=== PATIENT | female | born 1950 | race African-American/Black ===

== ENCOUNTER 2019-11-05 11:37 | Inpatient (IN) | payer OTHER, MEDICAID ==
[~2019-11-05] VITALS: Ht 160 cm; Wt 102.9 kg
[2019-11-05] MEDS ORDERED: ASPirin 81 mg TAB PO ONE (12:30)
[2019-11-05] MEDS ORDERED: cloNIDine HCL 0.1 MG TAB PO ONE (13:30)
[2019-11-05 13:43] LABS: Basophils # (auto) 0.1 10 ^3/uL (0-0.2); Eosinophils # (auto) 0.1 10 ^3/uL (0-0.8); Hematocrit 45.1 % (36.0-46.0); Hemoglobin 14.3 g/dL (12.2-16.2); Mean Corpuscular Hemoglobin 26.1 pg (28.0-32.0)
[2019-11-05 13:45] LABS: Basophils % (auto) 0.9 % (0.0-2.0); Eosinophils % (auto) 1.1 % (0.0-7.0); Lymphocytes # (auto) 2.6 10 ^3/uL (0.4-5.4); Lymphocytes % (auto) 26.8 % (10.0-50.0); Mean Corpuscular Hgb Conc. 31.8 g/dL (32.0-36.0); Mean Corpuscular Volume 82.2 fL (80.0-100.0); Neutrophils # (auto) 5.9 10 ^3/uL (1.6-8.6); Neutrophils % (auto) 61.2 % (37.0-80.0); Platelet Count (auto) 246 10^3/uL (140-450); Red Blood Cells 5.49 10^6/uL (4.0-5.20); Red Cell Distribution Width 14.6 % (11.8-14.3); White Blood Cell 9.7 10^3/uL (4.4-10.8)
[2019-11-05 13:56] LABS: INR 1.02 (0.9-1.15); Partial Thromboplastin Time 24.4 sec (23.64-32.05)
[2019-11-05 13:58] LABS: Albumin 3.6 g/dL (3.4-5.0); Anion Gap 7 (5-15); Blood Urea Nitrogen 10 mg/dL (7-18); Calcium 8.9 mg/dL (8.5-10.1); Carbon Dioxide 25 mmol/L (21-32); Chloride 109 mmol/L (98-107); Glucose 229 mg/dL (74-106); Potassium 3.7 mmol/L (3.5-5.1); Sodium 141 mmol/L (136-145)
[2019-11-05 14:04] LABS: Alanine Aminotransferase 29 U/L (13-56); Alkaline Phosphatase 106 U/L (45-117); Aspartate Aminotransferase 21 U/L (15-37); BUN/Creatinine Ratio 9.8; Bilirubin, Total 0.6 mg/dL (0.2-1.0); GFR African American 69 mL/min; GFR Non-African American 57 mL/min; Total Protein 7.8 g/dL (6.4-8.2)
[2019-11-05] MEDS ORDERED: DEXTROSE (50%) 50ML SYRG IV PRN (15:15)
[2019-11-05] MEDS ORDERED: NITROGLYCERIN 0.4 MG SL TAB SL PRN (15:15)
[2019-11-05] MEDS ORDERED: ONDANSETRON HCL 4 MG/2 ML VIAL IV PRN (15:15)
[2019-11-05] MEDS ORDERED: traMADol HCL 50 MG TAB PO PRN (15:15)
[2019-11-05] MEDS ORDERED: ACETAMINOPHEN 500 MG TAB PO PRN (15:15)
[2019-11-05] MEDS ORDERED: LORazepam 0.5 MG TAB PO PRN (15:15)
[2019-11-05] MEDS ORDERED: LACTULOSE 20Gm/30ML SOLN PO PRN (15:15)
[2019-11-05] MEDS ORDERED: TEMAZEPAM 15 MG CAP PO PRN (15:15)
[2019-11-05] MEDS ORDERED: MORPHINE SULF INJ 2 MG/ML SYRINGE 1ML IV PRN ×2 (15:15)
--- NOTE | 2019-11-05 16:13 | NUR ---
Telemetry admit from ER T[facility] admitted to Telemetry unit after SBAR received from ESTHETICIANTERRANCE Chao. Patient oriented to Lupe Jennings RN primary RN, unit, room, bed, and unit policies regarding patient care and visiting hours. Patient now on continuous telemetry monitoring, tele box # [id number] and telemetry reading on arrival to unit is Sinus Rhythm 94 bpm. Patient weighed by bedscale and encouraged to call if they need something. All questions and concerns addressed, patient verbalized understanding.
[2019-11-05] MEDS: SODIUM CHLORIDE 0.9% 1,000 ML IV SCH (16:46)
[2019-11-05] MEDS: ACCU-CHEK COMFORT CURVE STRIP VI SCH ×2 (16:48→21:33)
[2019-11-05] MEDS: InsuLIN REG 1unit/0.01ml Soln (100units/ml) SC SCH ×2 (17:26→21:36)
[2019-11-05 18:05] VITALS: BP 107/52
[2019-11-05] MEDS ORDERED: PNEUMOCOCCAL VACC POLYS 25 MCG/0.5 ML VIAL IM ONE (19:00)
--- NOTE | 2019-11-05 19:20 | NUR ---
CLOSING SHIFT NOTE ENDORSED CARE TO FORM SETTER/DRIVER TERRANCE MARTINEZ. PATIENT HAS NO S/S OF DISTRESS/SOB OR PAIN AT THIS TIME.
--- NOTE | 2019-11-05 19:25 | NUR ---
opening note pt A&Ox4. pt is currently dangling at the bedside. respirations are even and nonlabored on room air. pt denies pain or discomfort at this time. no chest pain at this time. bed is in low locked position, call light within reach.
[2019-11-05] MEDS: FAMOTIDINE 20 MG TAB PO SCH (21:40)
[2019-11-05] MEDS: ATORVASTATIN 20 MG TAB PO SCH (21:40)
[2019-11-05 22:00] VITALS: BP 159/71
[2019-11-05] MEDS: METOPROLOL TARTRATE 25 MG TAB PO SCH (22:19)
--- NOTE | 2019-11-06 04:40 | NUR ---
UA sent to LAB
[2019-11-06 05:00] VITALS: BP 156/89
[2019-11-06 05:39] LABS: Alcohol, Urine < 3.0 mg/dL (0-5); Amphetamine Screen, Urine NEGATIVE (NEGATIVE); Barbiturate Scree,Urine NEGATIVE (NEGATIVE); Benzodiazephine Screen, Urine NEGATIVE (NEGATIVE); Cannabinoid Screen, Urine NEGATIVE (NEGATIVE); Cocaine Screen, Urine NEGATIVE (NEGATIVE); Opiate Scree,Urine NEGATIVE (NEGATIVE); Phencyclidine Screen, Urine NEGATIVE (NEGATIVE)
[2019-11-06] MEDS: SODIUM CHLORIDE 0.9% 1,000 ML IV SCH (05:56)
[2019-11-06] MEDS: ACCU-CHEK COMFORT CURVE STRIP VI SCH ×4 (06:13→21:20)
[2019-11-06] MEDS: InsuLIN REG 1unit/0.01ml Soln (100units/ml) SC SCH ×4 (06:17→21:23)
[2019-11-06] MEDS ORDERED: INSLANTI SC (07:18)
[2019-11-06] MEDS ORDERED: METF-370 PO (07:18)
[2019-11-06] MEDS ORDERED: FURO40TA4 PO (07:18)
[2019-11-06] MEDS ORDERED: METO-169 PO (07:18)
--- NOTE | 2019-11-06 07:27 | NUR ---
closing note pt resting in left lateral position with eyes closed. no s/s of pain or discomfort. respirations are even and nonlabored on room air. bed in low locked position, call light within reach.
[2019-11-06 07:42] LABS: Cholesterol 143 mg/dL (< 200); HDL Cholesterol 55 mg/dL (40-59); LDL Cholesterol 73 mg/dL (< 100); Triglycerides 75 mg/dL (< 150)
[2019-11-06 09:00] VITALS: BP 143/81
--- NOTE | 2019-11-06 09:06 | NUR ---
OPENING SHIFT NOTE ASSUMED CARE OF PATIENT FROM EXCEPTIONAL CHILDREN TEACHER ASSISTANT TERRANCE MARTINEZ. PATIENT IS AWAKE, ALERT, AND ORIENTED X4. PATIENT HAS NO S/S OF DISTRESS/SOB OR PAIN. INSTRUCTED PATIENT ON POC, PATIENT VERBALIZED UNDERSTANDING. BED IS IN LOWEST POSITION WITH SIDE RAILS RAISED X2, BED WHEELS LOCKED, AND CALL LIGHT IS WITHIN REACH. WILL CONTINUE TO MONITOR. Addendum: 11/06/19 at 0907 by Lupe Jennings RN RN REPORT GIVEN AT [id number]
[2019-11-06] MEDS: ASPirin 81 mg TAB PO SCH (09:50)
[2019-11-06] MEDS: FAMOTIDINE 20 MG TAB PO SCH ×2 (09:50→21:25)
[2019-11-06] MEDS: ENOXAPARIN SOD 40 MG/0.4 ML SYRINGE SC SCH (09:52)
[2019-11-06] MEDS: METOPROLOL TARTRATE 25 MG TAB PO SCH ×2 (09:52→21:26)
[2019-11-06] MEDS ORDERED: NITROGLYCERIN 0.2MG/HR TOPICAL PATCH TD SCH (10:00)
[2019-11-06 13:00] VITALS: BP 158/88
[2019-11-06] MEDS ORDERED: hydrALAZINE HCL 20 MG/ML VL IV PRN (14:15)
[2019-11-06] MEDS ORDERED: LISINOPRIL 20 MG TAB PO ONE (14:15)
[2019-11-06] MEDS ORDERED: LORazepam 2MG/ML-1ML VIAL IV ONE (14:15)
--- NOTE | 2019-11-06 14:16 | NUR ---
MD FRANCO AT BEDSIDE UPDATED MD ON PATIENT'S STATUS INCLUDING DELUSIONS, AND BLOOD PRESSURE OF 180/79 mmHg. INFORMED MD IV FLUIDS WERE STOPPED BECAUSE OF BLOOD PRESSURE. PER MD SHE WILL PUT IN NEW ORDERS.
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
--- NOTE | 2019-11-06 14:52 | NUR ---
TELE PSYCH STARTED
[2019-11-06 17:00] VITALS: BP 167/91
--- NOTE | 2019-11-06 19:15 | NUR ---
CLOSING SHIFT NOTE ENDORSED CARE TO PLODDING MACHINE OPERATOR TERRANCE MARTINEZ. PATIENT HAS NO S/S OF DISTRESS/SOB OR PAIN AT THIS TIME.
--- NOTE | 2019-11-06 19:20 | NUR ---
opening note pt dangling at bedside. pt denies pain or discomfort at this time. respirations even and nonlabored on room air. bed in low locked position, call light within reach.
--- NOTE | 2019-11-06 19:35 | NUR ---
pt ambulating in hallway
[2019-11-06] MEDS: ATORVASTATIN 20 MG TAB PO SCH (21:26)
[2019-11-06] MEDS ORDERED: INSULIN LANTUS (GLARGINE) 1 /0.01ml (100units/ml) SC SCH (22:00)
--- NOTE | 2019-11-06 22:45 | NUR ---
pt walked down hallway, says she "can here her grandson screaming for help". pt reoriented to hospital environment. pt went back to assigned room and bed.
[2019-11-07] VITALS (9 sets, daily range): BP systolic 113–183; BP diastolic 80–114
--- NOTE | 2019-11-07 03:31 | NUR ---
pt resting comfortably in left lateral position, sleeping. respirations are even and nonlabored on room air. no s/s of pain or discomfort. bed in low locked position, call light within reach.
--- NOTE | 2019-11-07 05:10 | NUR ---
lab at bedside
[2019-11-07 06:15] LABS: Basophils # (auto) 0.1 10 ^3/uL (0-0.2); Eosinophils # (auto) 0.2 10 ^3/uL (0-0.8); Neutrophils # (auto) 3.8 10 ^3/uL (1.6-8.6)
[2019-11-07 06:17] LABS: Basophils % (auto) 1.1 % (0.0-2.0); Eosinophils % (auto) 2.3 % (0.0-7.0); Hematocrit 42.3 % (36.0-46.0); Hemoglobin 13.7 g/dL (12.2-16.2); Lymphocytes % (auto) 38.5 % (10.0-50.0); Mean Corpuscular Hemoglobin 26.6 pg (28.0-32.0); Mean Corpuscular Hgb Conc. 32.5 g/dL (32.0-36.0); Monocytes # (auto) 0.8 10 ^3/uL (0-1.3); Monocytes % (auto) 9.9 % (0.0-12.0); Neutrophils % (auto) 48.2 % (37.0-80.0); Platelet Count (auto) 236 10^3/uL (140-450); Red Blood Cells 5.16 10^6/uL (4.0-5.20); Red Cell Distribution Width 14.1 % (11.8-14.3); White Blood Cell 7.8 10^3/uL (4.4-10.8)
[2019-11-07] MEDS: ACCU-CHEK COMFORT CURVE STRIP VI SCH ×4 (06:23→22:17)
[2019-11-07] MEDS: InsuLIN REG 1unit/0.01ml Soln (100units/ml) SC SCH ×4 (06:24→22:14)
[2019-11-07 06:25] LABS: BUN/Creatinine Ratio 15.3; Potassium 3.8 mmol/L (3.5-5.1)
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
--- NOTE | 2019-11-07 07:25 | NUR ---
OPENING SHIFT NOTE ASSUMED CARE OF PATIENT FROM COOK BOX FILLER TERRANCE MARTINEZ. PATIENT IS AWAKE, ALERT, AND ORIENTED X4. PATIENT HAS NO S/S OF DISTRESS/SOB OR PAIN. INSTRUCTED PATIENT ON POC, PATIENT VERBALIZED UNDERSTANDING. BED IS IN LOWEST POSITION WITH SIDE RAILS RAISED X2, BED WHEELS LOCKED, AND CALL LIGHT IS WITHIN REACH. WILL CONTINUE TO MONITOR.
--- NOTE | 2019-11-07 07:27 | NUR ---
closing note pt sitting in bedside chair. respirations are even and nonlabored on room air. endorsed care to day shift nurse Lupe.
--- NOTE | 2019-11-07 08:00 | NUR ---
MOVED PATIENT TO ROOM 278B. PAGED YOUSUF BARKER FOR BLOOD PRESSURE OF 183/89 mmHg. AWAITING CALL BACK
--- NOTE | 2019-11-07 08:10 | NUR ---
YOUSUF BARKER ORDERED LABETALOLTO BE GIVEN PRN WILL FOLLOW THROUGH WITH ORDERS.
[2019-11-07] MEDS ORDERED: ADENOSINE 79 MG in GIVE UN-DILUTED 0 ML IV STA (08:14)
[2019-11-07] MEDS ORDERED: LABETALOL HCL 5 MG/ML 4ML SYRINGE IV PRN (08:30)
--- NOTE | 2019-11-07 08:44 | NUR ---
REASSESSED PATIENT'S BLOOD PRESSURE BEFORE GIVING LABETALOL AND IT IS 149/85 mmHg. BP DOES NOT MEET CRITERIA TO GIVE LABETALOL. WILL CONTINUE TO MONITOR.
--- NOTE | 2019-11-07 09:30 | NUR ---
PATIENT TAKEN DOWN FOR STRESS TEST. WILL ADMINISTER 1000 MEDICATIONS WHEN PATIENT RETURNS
--- NOTE | 2019-11-07 11:21 | NUR ---
PATIENT BACK FROM STRESS TEST. WILL ADMINISTER 1000 MEDICATIONS.
[2019-11-07] MEDS: ASPirin 81 mg TAB PO SCH (11:26)
[2019-11-07] MEDS: FAMOTIDINE 20 MG TAB PO SCH ×2 (11:26→22:18)
[2019-11-07] MEDS: ENOXAPARIN SOD 40 MG/0.4 ML SYRINGE SC SCH (11:26)
[2019-11-07] MEDS: LISINOPRIL 20 MG TAB PO SCH (11:31)
[2019-11-07] MEDS: METOPROLOL TARTRATE 25 MG TAB PO SCH ×2 (11:32→22:17)
--- NOTE | 2019-11-07 11:45 | NUR ---
MD FRANCO AT BEDSIDE UPDATED MD ON PATIENT'S STATUS INCLUDING TELE PSYCH RECOMMENDATIONS. MD IS AWARE AND WILL PUT IN NEW ORDERS.
--- NOTE | 2019-11-07 11:59 | NUR ---
PATIENT BEING TAKEN OFF UNIT FOR MRI VIA WHEELCHAIR. PATIENT HAS NO S/S OF DISTRESS/SOB OR PAIN AT THIS TIME.
[2019-11-07] MEDS ORDERED: LORazepam 0.5 MG TAB PO PRN (13:45)
[2019-11-07] MEDS ORDERED: SERTRALINE HCL 50 MG TAB PO ONE (13:45)
[2019-11-07] MEDS ORDERED: amLODIPine BESYLATE 5 MG TAB PO ONE (13:45)
--- NOTE | 2019-11-07 14:30 | NUR ---
ECHO BEING DONE AT THIS TIME.
[2019-11-07] MEDS ORDERED: CHOL20009 PO (15:30)
[2019-11-07] MEDS ORDERED: SERT-375 PO (15:31)
[2019-11-07] MEDS ORDERED: LORA-655 PO (15:32)
[2019-11-07] MEDS ORDERED: CAND32TA OR (15:33)
[2019-11-07] MEDS ORDERED: ALBUAER3 IN (15:35)
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
[2019-11-07] MEDS ORDERED: ATOR10TA52 PO (15:37)
--- NOTE | 2019-11-07 18:58 | NUR ---
CLOSING SHIFT NOTE ENDORSED CARE TO TERMINATION CLERK TERRANCE CONNOLLY. PATIENT HAS NO S/S OF DISTRESS/SOB OR PAIN AT THIS TIME. Addendum: 11/07/19 at 1904 by Lupe Jennings RN RN TERMINATION CLERK TERRANCE POPE
--- NOTE | 2019-11-07 19:30 | NUR ---
Opening Shift Note Assumed care of patient, awake and alert. No S/S of distress/SOB. Patient complained of pain 8/10 in her lower back, offered pain medication, patient refused, she said "i'll ride it out". Sitter at bedside. Instructed on POC and to call for assist PRN, will continue to monitor for changes Q1hr and PRN.
[2019-11-07] MEDS ORDERED: INSULIN LANTUS (GLARGINE) 1 /0.01ml (100units/ml) SC SCH (22:00)
[2019-11-07] MEDS ORDERED: QUEtiapine FUMARATE 25 MG TAB PO SCH (22:00)
[2019-11-07] MEDS: ATORVASTATIN 20 MG TAB PO SCH (22:17)
--- NOTE | 2019-11-08 03:50 | NUR ---
Void Patient is voiding.
[2019-11-08 05:00] VITALS: BP 148/71
[2019-11-08 06:08] LABS: Potassium 4.1 mmol/L (3.5-5.1)
[2019-11-08 06:11] LABS: BUN/Creatinine Ratio 19.7
[2019-11-08] MEDS: InsuLIN REG 1unit/0.01ml Soln (100units/ml) SC SCH ×3 (06:21→17:00)
[2019-11-08] MEDS: ACCU-CHEK COMFORT CURVE STRIP VI SCH ×3 (06:21→17:00)
--- NOTE | 2019-11-08 07:25 | NUR ---
Closing Note Endorsed care to day shift nurse.
[2019-11-08 08:24] VITALS: BP 160/84
--- NOTE | 2019-11-08 09:15 | NUR ---
Upon rounding, Patient noted to be crying. Patient states "My family has done me wrong! They all think I'm crazy", patient also states she was just on the phone with her grandson which is the reason why shes upset. Sitter at bed side. Relaxation techniques used and patient is now calm and resting in bed. Will continue to monitor.
[2019-11-08] MEDS: ENOXAPARIN SOD 40 MG/0.4 ML SYRINGE SC SCH (09:23)
[2019-11-08] MEDS: FAMOTIDINE 20 MG TAB PO SCH (09:23)
[2019-11-08] MEDS: METOPROLOL TARTRATE 25 MG TAB PO SCH (09:24)
[2019-11-08] MEDS: ASPirin 81 mg TAB PO SCH (09:24)
[2019-11-08] MEDS: LISINOPRIL 20 MG TAB PO SCH (09:25)
[2019-11-08] MEDS ORDERED: SERTRALINE HCL 50 MG TAB PO SCH (10:00)
[2019-11-08] MEDS ORDERED: amLODIPine BESYLATE 5 MG TAB PO SCH (10:00)
--- NOTE | 2019-11-08 12:00 | NUR ---
MD Blas at bed side discussing POC with patient. Patient verbalizes understanding. Awaiting social service consult to proceed with DC planning.
[2019-11-08 12:55] VITALS: BP 126/70
[2019-11-08] MEDS ORDERED: QUET25TA46 PO (13:49)
--- NOTE | 2019-11-08 14:57 | NUR ---
Nutrition Assessment Notes Please refer to link for full assessment notes. Est Energy needs: 9188-1436 kcals (14-18 kcal/kgBW) Est Protein needs: 56-61 gms/day (1.0-1.1 gm/kgBW) Will continue to monitor and reassess prn. Addendum: 11/08/19 at [address] Amended: Links added.
--- NOTE | 2019-11-08 15:01 | NUR ---
D/C Planning Per SS consult for safety evaluation, physical therapy, medication management and vitals. Faxed clinical information to [facility]. Per Kimi Childers ph: [phone] patient has been accepted and service to start within 24-48hrs upon d/c day. Obtain authorization from [facility] [id number].
[2019-11-08 15:22] VITALS: BP 126/70
[2019-11-08 16:02] VITALS: BP 123/75
--- NOTE | 2019-11-08 16:30 | NUR ---
Patient refused pneumonia vaccine. Patient states she never said she wanted it.
[2019-11-08 16:35] VITALS: BP 134/79
--- NOTE | 2019-11-08 16:40 | NUR ---
paged d/t patient refusing discharge. Patient states "I dont feel safe going home, everyone is after me." upon further conversation patient states "my caregiver cant pick me up, her aunt at 2pm". Will await call back.
--- NOTE | 2019-11-08 17:40 | NUR ---
Spoke to customer care manager Rupal Barnes . Caregiver states her mom is in ICU but she will arrange for someone else to burr picker patient.
--- NOTE | 2019-11-08 18:38 | NUR ---
Discharge instructions given as ordered. Encourage to follow up with PMD as instructed. All questions and concerns addressed. Patient verbalized understanding. Medication reconciliation form completed and copy given to patient. IV removed with catheter intact, pressure dressing applied. Telemetry unit returned to ICU. Patient taken to vehicle via wheelchair with all personal belongings, accompanied by staff. No distress noted at time of departure.
== END 2019-11-08 18:35 | disposition home health service (06) | DRG 880 ==
LOC: EDBD 11:37 → ER 11:37 → TELE 11:38 → TELE-WESTW 16:15
PROVIDERS: ADMIT Internal Medicine; ATTEND Internal Medicine
DX: F41.9 Anxiety disorder, unspecified (principal); F32.3 Major depressive disorder, single episode, severe with psychotic features; E11.65 Type 2 diabetes mellitus with hyperglycemia; I11.0 Hypertensive heart disease with heart failure; E66.01 Morbid (severe) obesity due to excess calories; I50.9 Heart failure, unspecified; I16.0 Hypertensive urgency; Z88.8 Allergy status to other drugs, medicaments and biological substances; Z90.710 Acquired absence of both cervix and uterus; I25.2 Old myocardial infarction; Z88.5 Allergy status to narcotic agent; Z79.899 Other long term (current) drug therapy; Z68.38 Body mass index [BMI] 38.0-38.9, adult; R42 Dizziness and giddiness
CPT/HCPCS: 36415; 70450; 70551; 71045; 78452; 80048; 80053; 80061; 80307; 82550; 82962; 83036; 83735; 83880; 84443; 84484; 85025; 85379; 85610; 85652; 85730; 86141; 93005; 93017; 93306; 96372; 97116; 97163; 97530; G0378; J0153; J1815